=== PATIENT | male | born 1970 | race Caucasian/White ===

== ENCOUNTER 2016-07-09 08:51 | Emergency (ER) | payer OTHER ==
[2016-07-09 10:18] LABS: RBC URINE 1 /hpf (0-3); URINE BILIRUBIN NEGATIVE (NEGATIVE); URINE BLOOD 1+ (NEGATIVE); URINE COLOR Yellow (YELLOW); URINE GLUCOSE (UA) NORMAL (Normal); URINE KETONE TRACE mg/dL (NEGATIVE); URINE LEUKOCYTE ESTERASE NEG Leu/uL (Negative); URINE PROTEIN 1+ mg/dL (NEGATIVE); URINE UROBILINOGEN NORMAL mg/dL (0.2-1.0); WBC URINE 5 /hpf (0-5)
[2016-07-09 10:31] LABS: URINE BACTERIA RARE (<OCC)
--- NOTE | 2016-07-09 10:37 | C.PDOC ---
History Of Present Illness 45 yr old male presents to the ER with complaints of diffuse bilateral flank pain and back pain, gradually developing for the past 3 days. Patient states the pain is intermittent, worse with movement and reproducible. Patient denies trauma, injury, fever, chest pain, SOB, abdominal pain, dysuria, hematuria, saddle anesthesia, incontinence, weakness or numbness to B/L LEs. Ambulate to ED for evaluation, not in any apparent distress.. Time Seen by Provider: 07/09/16 09:36 Chief Complaint (Nursing): Back Pain History Per: Patient History/Exam Limitations: no limitations Onset/Duration Of Symptoms: Gradual (3 days) Current Symptoms Are (Timing): Still Present Past Medical History Reviewed: Historical Data, Nursing Documentation, Vital Signs Vital Signs: Last Vital Signs Temp 98.8 F 07/09/16 09:05 Pulse 91 H 07/09/16 09:05 Resp 16 07/09/16 09:05 BP 119/73 07/09/16 09:05 Pulse Ox 97 07/09/16 10:46 Family History: States: No Known Family Hx - Social History Hx Alcohol Use: No Hx Substance Use: No - Immunization History Hx Tetanus Toxoid Vaccination: No Hx Influenza Vaccination: No Hx Pneumococcal Vaccination: No Review Of Systems Except As Marked, All Systems Reviewed And Found Negative. Constitutional: Negative for: Fever Cardiovascular: Negative for: Chest Pain Respiratory: Negative for: Shortness of Breath Gastrointestinal: Negative for: Abdominal Pain Genitourinary: Positive for: Other (No saddle anesthesia). Negative for: Dysuria, Incontinence, Hematuria Musculoskeletal: Positive for: Back Pain, Other ((+) Bilateral flank pain ) Neurological: Negative for: Weakness, Numbness Physical Exam - Physical Exam Appears: Well, Non-toxic, No Acute Distress Skin: Normal Color, Warm, Dry, No Rash Eye(s): bilateral: Normal Inspection Nose: Normal, No Discharge Oral Mucosa: Moist, No Drooling Tongue: Normal Appearing Throat: Normal, No Erythema, No Drooling Neck: Normal, Normal ROM, No Midline Cervical Tenderness, No Paracervical Tenderness, No Step Off Deformity, Supple Cardiovascular: Rhythm Regular Respiratory: Normal Breath Sounds Gastrointestinal/Abdominal: Normal Exam Back: Normal Inspection, No CVA Tenderness, No Vertebral Tenderness, Paraspinal Tenderness (diffuse B/L flank and lumbar paraspinal tenderness. No midlien tenderness.), Straight Leg Raising (B/L leg raise (+) at 8- degrees.) Extremity: Normal ROM, No Pedal Edema, No Deformity, No Swelling Extremity: Bilateral: Atraumatic Neurological/Psych: Oriented x3, Normal Speech, Normal Motor, Normal Sensation, Normal Reflexes ED Course And Treatment O2 Sat by Pulse Oximetry: 97 Pulse Ox Interpretation: Normal - Other Rad X-Ray - LS Spine X-Ray: Interpreted by Me, Viewed By Me Interpretation: No fracture. No sublux. Progress Note: On re-evaluation, pt is afebrile, hemodynamiclay stable. Tolerate Po well in ED. Ambulatory in ED, not in any apparent distress. PulseOx 97% RA. ENT: (-) acute findings. neck: (-) meningeal sign,. Lungs: CTA B/L, BS equal B/L. Abd: benign, (-) guarding, (-) rebound, (-) RLQ tenderness. Back: (-) CVA tenderness. Neuorlogicaly intact. UA results review and appears normal. Pt has clinical findings c/w back strain. Parent advised on course of ds. ref. to F/u with PMD in 2-3 days for re-eval. return if any new changes. Medical Decision Making Medical Decision Making: PLAN: * X-Ray - LS Spine * Urinalysis * Percocet PO Disposition Counseled Patient/Family Regarding: Studies Performed, Diagnosis, Need For Followup, Rx Given - Disposition Referrals: [facility] [Outside] Disposition Time: 10:02 Condition: STABLE Additional Instructions: LIght duty to lower back Take medication as prescribed Follow up with PMD In 2-3 days for re-evaluation. Return to ED if any worsening or new changes. 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 - Scribe Statement The provider has reviewed the documentation as recorded by the Scribe Goldie Mir All medical record entries made by the Scribe were at my direction and personally dictated by me. I have reviewed the chart and agree that the record accurately reflects my personal performance of the history, physical exam, medical decision making, and the department course for this patient. I have also personally directed, reviewed, and agree with the discharge instructions and disposition.
[2016-07-09] MEDS ORDERED: Oxycodone/Acetaminophen 5/325 mg Tab PO STA (10:38)
[2016-07-09] MEDS ORDERED: Oxycodone/Acetaminophen 5/325 mg Tab ONE (10:44)
[2016-07-09 11:37] VITALS: PULSE 83; RESP 20; TEMP 98.1; O2SAT 99
[2016-07-09 11:38] VITALS: BP 120/70
--- NOTE | 2016-07-09 11:47 | RAD ---
PROCEDURE: Radiographs of the Lumbar Spine. HISTORY: pain No antecedent history of trauma provided. COMPARISON: No prior. FINDINGS: BONES: Normal alignment. No listhesis. No fracture. DISC SPACES: Unremarkable. OTHER FINDINGS: None. IMPRESSION: Unremarkable radiographs of the lumbar spine. Concordant results with the preliminary interpretation rendered by the emergency department physician procedure.
== END 2016-07-09 11:00 | disposition home or self-care (01) ==
LOC: C.ER 08:51
DX: S33.5XXA Sprain of ligaments of lumbar spine, initial encounter (principal); X58.XXXA Exposure to other specified factors, initial encounter; Y93.9 Activity, unspecified; Y92.9 Unspecified place or not applicable

== ENCOUNTER 2016-09-04 12:24 | Emergency (ER) | payer OTHER ==
[2016-09-04 12:42] VITALS: BP 123/74; PULSE 73; RESP 18; TEMP 98.1; O2SAT 100
--- NOTE | 2016-09-04 13:35 | C.PDOC ---
History Of Present Illness R SHOULDER INJURY 20 DAYS AGO CO PERSIST PAIN. ACCID FELL ONTO R SHOULDER. CO PAIN W MOVEMENT. LIMITED RELIEF W CUPPING/ACCUPRESSURE. DENIES OTHER ASSOC SX EXAM NAD EXT R SHOULDER NO DEFORM/FLATTENING. LIMITED ABDUCTION / FLEXION DUE TO PAIN. + BEER CAN TEST. INT/EXT ROTATION WO DIFF. NO FOCAL TEND SKIN +CUPPING SHAPED BRUISING. INTACT. NO CELLULITIS NEURO INTACT Time Seen by Provider: 09/04/16 13:10 Chief Complaint (Nursing): Upper Extremity Problem/Injury History Per: Patient History/Exam Limitations: no limitations (0) Past Medical History Reviewed: Historical Data, Nursing Documentation, Vital Signs Vital Signs: Last Vital Signs Temp 98.1 F 09/04/16 12:37 Pulse 73 09/04/16 12:37 Resp 18 09/04/16 12:37 BP 123/74 09/04/16 12:37 Pulse Ox 100 09/04/16 13:38 Family History: States: No Known Family Hx - Social History Hx Alcohol Use: No Hx Substance Use: No - Immunization History Hx Tetanus Toxoid Vaccination: No Hx Influenza Vaccination: No Hx Pneumococcal Vaccination: No Review Of Systems Except As Marked, All Systems Reviewed And Found Negative. Constitutional: Negative for: Fever Cardiovascular: Negative for: Chest Pain Respiratory: Negative for: Shortness of Breath Gastrointestinal: Negative for: Vomiting Musculoskeletal: Positive for: Shoulder Pain Skin: Negative for: Rash Neurological: Negative for: Weakness, Numbness Physical Exam - Physical Exam Appears: Non-toxic, No Acute Distress Skin: Other (+CUPPING SHAPED BRUISING. INTACT. NO CELLULITIS) Extremity: Other (R SHOULDER NO DEFORM/FLATTENING. LIMITED ABDUCTION / FLEXION DUE TO PAIN. +BEER CAN TEST. INT/EXT ROTATION WO DIFF. NO FOCAL TEND) ED Course And Treatment O2 Sat by Pulse Oximetry: 100 Pulse Ox Interpretation: Normal - Other Rad R SHOULDER X-Ray: Interpreted by Me (NEG) Progress - Data Reviewed Data Reviewed: Old records Disposition Counseled Patient/Family Regarding: Studies Performed, Diagnosis, Need For Followup, Rx Given - Disposition Referrals: [facility] [Outside] [facility] [Outside] Disposition: HOME/ ROUTINE Disposition Time: 13:37 Condition: GOOD Prescriptions: Cyclobenzaprine [Flexeril] 10 mg PO TID #15 tab Naproxen 500 mg PO BID #30 tab Instructions: Rotator Cuff Injury (ED) Forms: Work Excuse Print Language: CYMRAES - Clinical Impression Clinical Impression: Shoulder sprain - Scribe Statement The provider has reviewed the documentation as recorded by the Micheleibjamin Carter All medical record entries made by the Micheleibe were at my direction and personally dictated by me. I have reviewed the chart and agree that the record accurately reflects my personal performance of the history, physical exam, medical decision making, and the department course for this patient. I have also personally directed, reviewed, and agree with the discharge instructions and disposition.
--- NOTE | 2016-09-04 14:11 | RAD ---
PROCEDURE: Radiographs of the Right Shoulder HISTORY: TRAUMA COMPARISON: None available. FINDINGS: BONES: No acute displaced fracture. The distal clavicle and underlying ribs appear intact. JOINTS: No acute dislocation. SOFT TISSUES: Soft tissues appear unremarkable. No evidence of radiopaque foreign body. IMPRESSION: No acute displaced fracture or dislocation evident. If symptoms persist or if there is continued clinical concern, x-ray follow-up in 7-10 days should be considered.
== END 2016-09-04 13:47 | disposition home or self-care (01) ==
LOC: C.ER 12:24
DX: S43.401A Unspecified sprain of right shoulder joint, initial encounter (principal); W19.XXXA Unspecified fall, initial encounter